=== PATIENT | female | born 1965 | race Caucasian/White ===

== ENCOUNTER 2019-07-30 21:34 | Emergency (ER) | payer OTHER, SELFPAY ==
[2019-07-30 21:37] VITALS: BP 129/74; PULSE 69; RESP 16; TEMP 36.7; O2SAT 97
--- NOTE | 2019-07-30 21:45 | ED.GENADUL_ITS ---
Discharge Plan Disposition Patient Disposition: HOME Condition: Stable Discharge Details Chief Complaint: AnimalBite Clinical Impression: Dog bite of face Primary Care Provider: None,None ED Provider: Scottie Sandy Home Meds and New Rx's Prescriptions: New amoxicillin-pot clavulanate 875-125 mg tablet 1 tab PO BID 10 Days Qty: 20 RF: 0 Discharge Instructions Instructions: Animal Bite (ED) Additional Instructions: Next dose of antibiotic tomorrow morning. To take as prescribed for its entire course. I recommend you take a [id number] probiotic in the middle of the day while on antibiotic or live culture yogurt as we discussed. Return if you develop a fever, redness surrounding the wounds or foul-smelling discharge. Return for removal of stitches in 7 to 8 days time. May use Tylenol and ibuprofen as needed for discomfort Medical Decision Making 53-year-old female who was bit by an immunized dog but is known to her in the lower lip and face. She has macerated lower lip lacerations across the vermilion border. There is an abrasion to the right cheek but no other significant defects or injury. IV placed and patient given a dose of Unasyn. Discussed with her risk and benefit including significant cosmetic disfiguring if not repaired. Patient anesthetized, liberally irrigated and cleansed, examined in a bloodless field without evidence of foreign body and lacerations repaired. 6 stitches were placed in the right lip laceration, 4 in the midline laceration. Dressed with antibiotic ointment. We will place her on a course of Augmentin. She understands homecare, follow-up, return precautions. HPI General Mode of arrival: ambulatory . Date/Time Provider Initiated Documentation: 07/30/19 21:36 . Limitations to Documentation: no limitations . Information obtained by: patient and family . History of Present Illness 53 year old F presents to the emergency department with the chief complaint of Dog bite to face and lower lip, described as moderate, Quality is described as constant, and is localized to the face and mouth. Patient reports no radiation. Patient started experiencing this minute(s) and it has been constant. No relieving factors improve symptom(s), No exacerbating factors reported . Patient notes no other symptoms.. Patient did receive the f ollowing treatments prior to arrival, none Related Data Home Medications Medication Instructions Recorded Confirmed amoxicillin-pot clavulanate 1 tab PO BID 10 Days #20 tab 07/30/19 Previous Rx's Medication Instructions Recorded amoxicillin-pot clavulanate 1 tab PO BID 10 Days #20 tab 07/30/19 Allergies Allergy/AdvReac Type Severity Reaction Status Date / Time insect venom AdvReac Unverified 07/30/19 21:47 General Stated Complaint: AnimalBite PURA: 4 Review of Systems Review of Systems Narrative: Denies facial numbness. The dog's shots are up-to-date. Patient has otherwise recently been well. 6 systems reviewed and otherwise negative [facility] Social History Smoking/Tobacco Use Status: Current every day Tobacco Type: cigarettes Do you feel safe at home: Yes Do you feel safe in your relationship?: Yes Exam Narrative Exam Narrative: GEN: awake, alert, oriented 3. Pleasant, well groomed, interactive. HEAD: Normocephalic, atraumatic ENT: Mucous membranes moist, right cheek abrasion. The lower lip has 2 areas of macerated lacerations across the vermilion border on the right hand lower aspect. Measures approximately 3.5 cm total. No intraoral lacerations EYES: PERRL, EOMI NECK: Full ROM, no RUSSELL, no menigismus CHEST/RESP: Nontender EXT: Full ROM, no edema, no rash Neuro: Grossly normal neurologic exam, conversant, interactive. Psych: Speech fluent, thoughts congruent, affect normal Procedures Laceration Laceration 1: Site: face and lip Side (If applicable): right Size (cm): 3.5 Description: irregular and involves kareem border Depth: simple, single layer Local Anesthetic: Lidocaine 1% Amount of anesthesia used (mL): 2 Pre-repair: wound explored, irrigated extensively and deep structures intact Skin layer closed with: nylon Size (cm): 5-0 Number of sutures: 10 Technique: simple, interrupted
[2019-07-30] MEDS: AMPICILLIN/SULBACTAM 3 GM in Normal Saline 100 ML IVPB (22:08)
[2019-07-30] MEDS: Ketorolac 15 MG/ML VIAL IVP (22:09)
[2019-07-30] MEDS: Amoxicillin 875/Clav. 125 TAB PO (22:10)
== END 2019-07-30 23:15 | disposition home or self-care (01) ==
PROVIDERS: Emergency Provider Emergency Medicine
DX: S01.551A Open bite of lip, initial encounter (principal); W54.0XXA Bitten by dog, initial encounter
CPT/HCPCS: 12013; 90471; 96365; 96375; 99284; J0295; J1885

== ENCOUNTER 2019-08-06 15:05 | Emergency (ER) | payer OTHER, SELFPAY ==
[2019-08-06 15:07] VITALS: BP 125/78; PULSE 75; RESP 16; TEMP 37; O2SAT 98
--- NOTE | 2019-08-06 15:14 | ED.GENADUL_ITS ---
Discharge Plan Disposition Patient Disposition: HOME Condition: Stable Discharge Details Chief Complaint: SutureRem Clinical Impression: Visit for wound check Primary Care Provider: None,None ED Provider: Scottie Sandy Home Meds and New Rx's Prescriptions: No Action amoxicillin-pot clavulanate 875-125 mg tablet 1 tab PO BID 10 Days Qty: 20 RF: 0 Discharge Instructions Additional Instructions: Return in 48 to 72 hours for reevaluation and probable suture removal. Return sooner for any acute concerns Medical Decision Making 53-year-old female who suffered a dog bite lower lip 6 days ago. I repaired the wound with sutures in place her on Augmentin. She returns for consideration of suture removal. There is no evidence of wound infection, the wound is healing well but I feel requires an additional 72 hours until the sutures may be safely removed to avoid the risk of dehiscence. Patient was discharged home will return Thursday or Thursday for probable suture removal. HPI General Mode of arrival: ambulatory . Date/Time Provider Initiated Documentation: 08/06/19 15:09 . Limitations to Documentation: no limitations . Information obtained by: patient . History of Present Illness 53 year old F presents to the emergency department with the chief complaint of Wound check, 6- 1/2 days since placement, and is localized to the mouth. Patient started experiencing this day(s) Patient did receive the following treatments prior to arrival, none Related Data Home Medications Medication Instructions Recorded Confirmed amoxicillin-pot clavulanate 1 tab PO BID 10 Days #20 tab 07/30/19 Previous Rx's Medication Instructions Recorded amoxicillin-pot clavulanate 1 tab PO BID 10 Days #20 tab 07/30/19 Allergies Allergy/AdvReac Type Severity Reaction Status Date / Time insect venom AdvReac Unverified 07/30/19 21:47 General Stated Complaint: SutureRem PURA: 4 Review of Systems Review of Systems Narrative: No bleeding, fever, chills, discharge PFSH Social History Smoking/Tobacco Use Status: Current every day Tobacco Type: cigarettes Do you feel safe at home: Yes Do you feel safe in your relationship?: Yes Exam Narrative Exam Narrative: GEN: awake, alert, oriented 3. Pleasant, well groomed, interactive. HEAD: Normocephalic, atraumatic ENT: Mucous membranes moist, oropharynx unremarkable, healing lower lip lacerations with sutures in place. No fluctuance, no bleeding, no discharge Psych: Speech fluent, thoughts congruent, affect normal Course Vital Signs Vital signs: Vital Signs Temperature 37.0 C 08/06/19 15:07 Pulse 75 08/06/19 15:07 Respiratory Rate 16 08/06/19 15:07 Blood Pressure 125/78 08/06/19 15:07 Pulse Oximetry 98 08/06/19 15:07 Temperature 37.0 C 08/06/19 15:07 Temperature Source Temporal Artery Scan 08/06/19 15:07 Pulse 75 08/06/19 15:07 Respiratory Rate 16 08/06/19 15:07 Respiratory Effort Non-Labored 08/06/19 15:10 Blood Pressure 125/78 08/06/19 15:07 Blood Pressure Position Supine 08/06/19 15:07 Pulse Oximetry 98 08/06/19 15:07 Oxygen Delivery Method Room Air 08/06/19 15:07 Oxygen Flow Rate 0 08/06/19 15:07 Pain Level 0 08/06/19 15:07
[2019-08-06 15:19] VITALS: BP 125/78; PULSE 75; RESP 16; TEMP 37; O2SAT 98
== END 2019-08-06 15:29 | disposition home or self-care (01) ==
PROVIDERS: Emergency Provider Emergency Medicine
DX: S01.551D Open bite of lip, subsequent encounter (principal); W54.0XXD Bitten by dog, subsequent encounter; Z48.02 Encounter for removal of sutures

== ENCOUNTER 2019-08-10 15:44 | Emergency (ER) | payer OTHER, SELFPAY ==
[2019-08-10 15:56] VITALS: BP 141/68; PULSE 67; RESP 14; TEMP 36.5; O2SAT 98
--- NOTE | 2019-08-10 16:02 | W.ED.GENAD ---
Discharge Plan Disposition Patient Disposition: HOME Condition: Good Discharge Details Chief Complaint: SutureRem Clinical Impression: Encounter for removal of sutures Primary Care Provider: None,None ED Provider: Lianne Duenas Discharge Instructions Instructions: Stitches Removal (ED) Additional Instructions: Continue to monitor area for signs of infection including redness, warmth, drainage, increased pain, fever/chills. If you develop these or other new/worsening symptoms please seek care urgently once again. Otherwise, please follow-up with primary care as needed. Discharge Data Discharge Date/Time-TO BE ENTERED AT DEPARTURE: 08/10/19 16:17 Medical Decision Making Patient presents today with chief complaint of suture removal. Wound appears to be healing well. Patient has been seen here a few days ago at that time, the wound did not appear to be healed enough to have the sutures removed. Feel that at this point, this is appropriate. I see no evidence of infection or dehiscence. The stitches were easily removed by myself. Patient has excellent cosmetic outcome. Advised to keep this out of direct sun. Advised that she continue to hydrate the area. We again discussed the signs symptoms of infection when to seek care urgently once again. All her questions and concerns were addressed and she is in agreement this plan. HPI General Mode of arrival: ambulatory. Date/Time Provider Initiated Documentation: 08/10/19 16:01. Limitations to Documentation: no limitations. Information obtained by: patient, family () and RN notes reviewed. History of Present Illness 53 year old F presents to the emergency department with the chief complaint of suture removal, described as mild (denies any pain at this time, stitches are annoying), Patient started experiencing this week(s) Patient notes no other symptoms.; denies fever/chills and rash. Related Data Allergies Allergy/AdvReac Type Severity Reaction Status Date / Time insect venom AdvReac Unverified 07/30/19 21:47 General Stated Complaint: SutureRem PURA: 5 Review of Systems Constitutional Constitutional: Reports as per HPI, Denies chills, Denies fever(s) and Denies weakness Musculoskeletal Musculoskeletal: Reports as per HPI and Denies tingling Integumentary/Breasts Skin/Breast: Reports as per HPI Neurologic Neurologic: Denies sensory deficit, Denies tingling and Denies weakness [facility] Social History (Reviewed 08/10/19 @ 16:10 by KENNA Cool Smoking/Tobacco Use Status: Current every day Tobacco Type: cigarettes Do you feel safe at home: Yes Do you feel safe in your relationship?: Yes Exam Const General: cooperative, healthy appearing, comfortable, no acute distress and well developed Nutritional Appearance: average body habitus and well nourished Orientation: alert and awake HENMT Mouth: lip abnormal (wound to kareem border lateral inferior lip healing well) Resp Effort & Inspection: normal respiratory effort, able to speak in complete sentences and no respiratory distress Cardio Rate: regular rate Rhythm: regular rhythm Skin Trauma: laceration (well healed laceration inferior aspect lower lip, stitches in place) Neuro General: alert and awake Cognition: normal cognition Speech: speech normal Gait: normal gait Motor: muscle tone normal throughout Psych Appearance: grossly normal and well kempt Mental Status: mental status grossly normal Speech and Movement: speech and movement normal Course Vital Signs Vital signs: Vital Signs Temperature 36.5 C 08/10/19 15:56 Pulse 67 08/10/19 15:56 Respiratory Rate 14 08/10/19 15:56 Blood Pressure 141/68 H 08/10/19 15:56 Pulse Oximetry 98 08/10/19 15:56 Temperature 36.5 C 08/10/19 15:56 Temperature Source Temporal Artery Scan 08/10/19 15:56 Pulse 67 08/10/19 15:56 Respiratory Rate 14 08/10/19 15:56 Respiratory Effort Non-Labored 08/10/19 15:57 Blood Pressure 141/68 H 08/10/19 15:56 Blood Pressure Position Sitting 08/10/19 15:56 Pulse Oximetry 98 08/10/19 15:56 Oxygen Delivery Method Room Air 08/10/19 15:56 Oxygen Flow Rate 0 08/10/19 15:56 Pain Level 0 08/10/19 15:56
== END 2019-08-10 16:17 | disposition home or self-care (01) ==
PROVIDERS: Emergency Provider Physician Assistant
DX: S01.511D Laceration without foreign body of lip, subsequent encounter (principal); Z48.02 Encounter for removal of sutures